=== PATIENT | female | born 1960 | race African-American/Black ===

== ENCOUNTER 2018-01-30 10:10 | Emergency (ER) | payer MEDICAID ==
[~2018-01-30] VITALS: Ht 162.6 cm; Wt 75.0 kg
[2018-01-30] MEDS ORDERED: BACITRACIN ZINC OINT UDPKT TOP ONE (11:15)
[2018-01-30] MEDS ORDERED: TETANUS, DIPHTHERIA, PERTUSSIS VAC/PF 0.5ML (>7YR OLD) IM ONE (12:45)
[2018-01-30 12:49] VITALS: BP 127/77
== END 2018-01-30 12:51 | disposition home or self-care (01) ==
LOC: ER 10:54
DX: S61.217A Laceration without foreign body of left little finger without damage to nail, initial encounter (principal); I10 Essential (primary) hypertension; E11.9 Type 2 diabetes mellitus without complications; X78.1XXA Intentional self-harm by knife, initial encounter; Y93.89 Activity, other specified; Y92.009 Unspecified place in unspecified non-institutional (private) residence as the place of occurrence of the external cause; Y99.8 Other external cause status
CPT/HCPCS: 12001; 90471; 90715; 99283; X7700; Z7610

== ENCOUNTER 2018-02-03 11:01 | Emergency (ER) | payer MEDICAID ==
[~2018-02-03] VITALS: Ht 162.6 cm; Wt 63.5 kg
[2018-02-03 12:19] VITALS: BP 136/78
== END 2018-02-03 12:52 | disposition home or self-care (01) ==
LOC: ER 12:51
DX: Z48.00 Encounter for change or removal of nonsurgical wound dressing (principal)
CPT/HCPCS: 99281

== ENCOUNTER 2018-02-26 07:48 | Emergency (ER) | payer MEDICAID ==
[~2018-02-26] VITALS: Ht 167.6 cm; Wt 65.0 kg
[2018-02-26 07:52] VITALS: BP 167/97
== END 2018-02-26 09:52 | disposition home or self-care (01) ==
LOC: ER 08:59
DX: Z48.02 Encounter for removal of sutures (principal)
CPT/HCPCS: 99281

== ENCOUNTER 2018-09-15 13:25 | Emergency (ER) | payer MEDICAID, MEDICARE ==
[~2018-09-15] VITALS: Ht 162.6 cm; Wt 68.0 kg
[2018-09-15 13:48] VITALS: BP 132/77
[2018-09-15] MEDS ORDERED: IBUPROFEN 600MG TABLET PO ONE (14:45)
[2018-09-15] MEDS ORDERED: BACITRACIN ZINC OINT UDPKT TOP ONE (15:30)
== END 2018-09-15 15:38 | disposition home or self-care (01) ==
LOC: ER 13:25
DX: L03.111 Cellulitis of right axilla (principal)
CPT/HCPCS: 99283